=== PATIENT | female | born 1970 | race Caucasian/White ===

== ENCOUNTER 2018-05-06 07:07 | Emergency (ER) | payer BC ==
--- NOTE | 2018-05-06 07:12 | UC ---
Lower Extremity/Ankle HPI - HPI Summary HPI Summary: Patient is 47 year old female, who present today to the urgent care with right foot pain for past 1 week. She denies any injury. Pain started gradually and has progressively got worse to the point that it's hard to bear weight on the right side. Pain is mainly located in the metatarsal area- second to fourth metatarsals. There is associated swelling and slight redness. 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 - History of Current Complaint Stated Complaint: R FOOT INJURY Time Seen by Provider: 05/06/18 07:10 Hx Obtained From: Patient ?: No - post hysterectomy - Allergies/Home Medications Allergies/Adverse Reactions: Allergies Allergy/AdvReac Type Severity Reaction Status Date / Time No Known Allergies Allergy Verified 05/06/18 07:16 Home Medications: Home Medications Glucosam/Chond-MSM 2/C/D3/Andrade [Yrobqtjhad-Iecvelmducb-EAH Tab] 1 tab PO DAILY 05/06/18 [History Confirmed 05/06/18] Hydroxychloroquine TAB* [Plaquenil TAB*] 100 mg PO DAILY 05/06/18 [History Confirmed 05/06/18] Terbinafine [Lamisil At] 250 mg PO DAILY 05/06/18 [History Confirmed 05/06/18] PMH/Surg Hx/FS Hx/Imm Hx - Additional Past Medical History Additional PMH: Connective-tissue disorder on the plaquenil Previously Healthy: Yes - Surgical History Surgical History: Yes Surgery Procedure, Year, and Place: hysterectomy 2007 - Social History Alcohol Use: Occasionally Substance Use Type: None Smoking Status (MU): Never Smoked Tobacco Review of Systems All Other Systems Reviewed And Are Negative: Yes Constitutional: Positive: Negative Skin: Positive: Negative Eyes: Positive: Negative ENT: Positive: Negative Respiratory: Positive: Negative Cardiovascular: Positive: Negative Gastrointestinal: Positive: Negative Genitourinary: Positive: Negative Motor: Positive: Negative Neurovascular: Positive: Negative Musculoskeletal: Positive: Arthralgia - Right foot, Edema - Right foot, Other: - Painful weightbearing Neurological: Positive: Negative Psychological: Positive: Negative Is Patient Immunocompromised?: No Physical Exam - Summary Physical Exam Summary: Physical Exam: Const: Appears well. No signs of apparent distress present. Alert and oriented x 3. Musculo: Antalgic Head/Face: Atraumatic, normocephalic on inspection. Eyes: EOMI and PERRLA in both eyes. Conjunctivae clear. No discharge noted ENT: Hearing normal, Respiratory: Respirations are unlabored. Lungs clear to auscultation bilaterally, no wheezing , rhonchi or rales noted . CVS: Regular rate and Rhythm, S1S2 normal , no murmurs identified. Extremities: Peripheral circulation is grossly normal. Pulses 2+ Abdomen : Soft non tender , nondistended , Bowel sounds present . No guarding , rebound tenderness or rigidity noted. Skin: No lesions or rash located on the upper extremities or on the lower extremities. Neuro: Cranial nerves II to XII intact, motor and sensory intact. DTR Intact bilaterally. Mood is normal. Affect is normal. Right Ankle/Feet examination: Ankle: Gait: Antalgic Inspection/palpation: No bruising, swelling or crepitus noted. There is no tenderness to palpation ROM: full AROM pain-free Strength: 5/5 with dorsiflexion, plantarflexion, inversion and eversion Special tests:Anterior drawer test is negative . Side to side test negative.Talar tilt test(inversion stress) and the eversion stress test negative. Negative Squeeze and External Rotation tests. Feet: Insp/Palp: Bilateral bunion. Mild swelling, erythema noted on the metatarsal area on on the plantar aspect. There is significant tenderness to palpation at the second, third and fourth metatarsals. Strength: EHL 5/5 blaterally Skin: No scars, rashes, lesions or ecchymosis. 2+ posterior tibial and dorsalis pedis pulse bilaterally. Neuro: Sensation to light touch is intact in the lower extremities bilaterally. Coordination normal. 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 IMPRESSION: NO EVIDENCE FOR FRACTURE. Lower Extremity Course/Dx - Course Course Of Treatment: During the visit today, we obtained x-rays of the right foot- no fracture identified( Final read: X-rays of the right foot: There is mild hallux valgus deformity and mild osteoarthritic change in the firstmetatarsal-phalangeal joint.IMPRESSION: NO EVIDENCE FOR FRACTURE). Suspect stress fracture of the second to fourth metatarsal ,for which x-rays can be negative early on. I also discussed that there is a possibility of very early infection but does not seem like one so advised her to monitor for any worsening of her redness. We discussed the findings and further plan. She will start using the cam boot and follow up with orthopedics. She has pain with weightbearing in the cam boot walker, she was given crutches to ambulate. Patient expressed understanding . - Differential Dx/Diagnosis Provider Diagnosis: Stress fracture of foot, Metatarsal stress fracture of right foot Discharge - Sign-Out/Discharge Documenting (check all that apply): Patient Departure All imaging exams completed and their final reports reviewed: Yes - Discharge Plan Condition: Stable Disposition: HOME Patient Education Materials: Suspected Fracture (ED) Referrals: Tere Archer MD [Primary Care Provider] - 1 Week Giancarlo Aguillon MD [Medical Doctor] - 2 Days Additional Instructions: Possible Stress fracture. You can take ibuprofen as needed for pain. Ice the area locally 15 minutes at a time, 3-4 times a day. Keep the cam boot on all the time during the day. You can take it off at night. Follow up with orthopedics within 2 to 3 days Patients blood pressure slightly high in Urgent care today in the pre- hypertensive range , plan follow up with PCP for better control Return to Urgent care / ER if symptoms get worse. - Billing Disposition and Condition Condition: STABLE Disposition: Home
[2018-05-06 07:15] VITALS: BP 128/77
== END 2018-05-06 08:05 | disposition home or self-care (01) ==
LOC: UCEAST 07:07
DX: M84.374A Stress fracture, right foot, initial encounter for fracture (principal); X58.XXXA Exposure to other specified factors, initial encounter; Y92.9 Unspecified place or not applicable
CPT/HCPCS: 99213; G0463

== ENCOUNTER 2018-09-18 07:12 | Emergency (ER) | payer BC ==
[2018-09-18 07:27] VITALS: BP 112/78
--- NOTE | 2018-09-18 07:48 | UC ---
Elbow Pain - HPI Summary HPI Summary: left elbow pain x 1 day pain is 9 out of 10 , no radiation , worse with movement and lifting better with rest, no known injury , concern about Lyme disease , denies and tick bites , no rash , no fever, no chills - History of Current Complaint Chief Complaint: UCUpperExtremity Stated Complaint: ELBOW PAIN Time Seen by Provider: 09/18/18 07:17 Hx Obtained From: Patient ?: No Severity Initially: Moderate Severity Currently: Moderate Pain Intensity: 9 Location Of Pain: Is Discrete @ - lateral left elbow Character: Aching, Throbbing Aggravating Factor(s): Movement Alleviating Factor(s): Rest Associated Signs And Symptoms: Negative: Swelling, Redness, Bruising, Fever, Weakness, Numbness/Tingling - Allergies/Home Medications Allergies/Adverse Reactions: Allergies Allergy/AdvReac Type Severity Reaction Status Date / Time No Known Allergies Allergy Verified 09/18/18 07:26 Home Medications: Home Medications Acetaminophen [APAP] 975 mg PO ONCE PRN 09/18/18 [History Confirmed 09/18/18] Spironolactone 100 mg PO QPM 09/18/18 [History Confirmed 09/18/18] PMH/Surg Hx/FS Hx/Imm Hx Endocrine History: Hyperthyroidism - Surgical History Surgical History: Yes Surgery Procedure, Year, and Place: hysterectomy 2007 - Family History Known Family History: Negative: Diabetes - Social History Alcohol Use: Occasionally Substance Use Type: None Smoking Status (MU): Never Smoked Tobacco Review of Systems All Other Systems Reviewed And Are Negative: Yes Is Patient Immunocompromised?: No Physical Exam Triage Information Reviewed: Yes Appearance: Well-Appearing, No Pain Distress, Well-Nourished Vital Signs: Initial Vital Signs Temp 98.3 F 09/18/18 07:20 Pulse 58 09/18/18 07:20 Resp 18 09/18/18 07:20 BP 112/78 09/18/18 07:20 Pulse Ox 100 09/18/18 07:20 Vital Signs Reviewed: Yes Eye Exam: Normal Eyes: Positive: Conjunctiva Clear ENT: Positive: Normal ENT inspection, Hearing grossly normal, Pharynx normal Neck exam: Normal Neck: Positive: Supple, Nontender, No Lymphadenopathy Respiratory: Positive: Chest non-tender, Lungs clear, Normal breath sounds, No respiratory distress Cardiovascular: Positive: RRR, No Murmur, Pulses Normal Musculoskeletal: Positive: Other: - left elbow: no swelling, no erythema, not warm to touch, tenderness lateral elbow, severe pain with flexion and extension Skin Exam: Normal Skin: Negative: Rashes Elbow Pain Course/Dx - Differential Dx/Diagnosis Provider Diagnosis: Left tennis elbow Discharge - Sign-Out/Discharge Documenting (check all that apply): Patient Departure All imaging exams completed and their final reports reviewed: No Studies - Discharge Plan Condition: Stable Disposition: HOME Prescriptions: Naproxen [Naproxen 500 mg tab] 500 mg PO BID #20 tablet. Patient Education Materials: Tennis Elbow (ED) Referrals: Tere Archer MD [Primary Care Provider] - 7 Days Additional Instructions: symptoms consistent with tennis elbow will check for Lyme disease please call the office in 5 days for the lab results - Billing Disposition and Condition Condition: STABLE Disposition: Home
== END 2018-09-18 07:58 | disposition home or self-care (01) ==
LOC: UCEAST 07:12
DX: M77.12 Lateral epicondylitis, left elbow (principal)
CPT/HCPCS: 36415; 86618; 99211; G0463